=== PATIENT | female | born 1975 | race Caucasian/White ===

== ENCOUNTER 2019-10-03 17:49 | Emergency (ER) | payer OTHER ==
[~2019-10-03] VITALS: Ht 172.7 cm; Wt 118.2 kg
[~2019-10-03 17:49] MED LIST: ALEVE 220MG220 MG PO; ALLEGRA 180MG180 MG PO; ALLEGRA60 M1 PO; ASPIRIN 32325 MG/TAB PO; CELEBREX 200MG200 MG PO; CENTRUM SILVER1 CTB PO; DILAUDID 2MG TAB2 MG PO; EC NAPROSYN500 MG PO; FLEXERIL 1010 MG/TAB PO; IMITREX100 MG PO; IMITREX25 MG PO; LIDODERM PATCH TP; NEXIUM 40MG40 MG PO; NEXIUM40 MG PO; NORCO 325 MG-51 TAB PO; PERCOCET 325 MG1 TA2 PO; PROVENTIL0.09 MG/A1 IH; ROBAXIN 50500 MG/TAB PO; SINGULAIR10 MG PO; TYLENOL 325MG325 MG PO; ULTRAM 50MG TAB50 MG PO; VALIUM 5MG T5 MG/TAB PO; VENTOLIN0.09 MG IH
[2019-10-03] MEDS ORDERED: NORCO 325 MG-51 TAB PO (20:06)
[2019-10-03] MEDS ORDERED: PREDNISONE20 MG PO (20:06)
[2019-10-03] MEDS ORDERED: VALIUM 5MG T5 MG/TAB PO (20:06)
[2019-10-03 20:35] VITALS: BP 126/73; PULSE 74; TEMP 98.1
== END 2019-10-03 20:36 | disposition home or self-care (01) ==
LOC: COL.ER 17:49
DX: M54.16 Radiculopathy, lumbar region (principal); K21.9 Gastro-esophageal reflux disease without esophagitis; J45.909 Unspecified asthma, uncomplicated; F41.9 Anxiety disorder, unspecified; Z79.82 Long term (current) use of aspirin
CPT/HCPCS: J1170; J2405; J2930; J3360

== ENCOUNTER → 2019-10-26 | Outpatient (CLI) | payer OTHER ==
[~2019-10-26] MED LIST changes: +PREDNISONE20 MG PO
== END ==
LOC: COL.RAD 11:48
DX: M54.5 Low back pain (principal)

== ENCOUNTER → 2019-11-30 | Outpatient (CLI) | payer OTHER | LOC: COL.RAD 07:02 | DX: M51.9 Unspecified thoracic, thoracolumbar and lumbosacral intervertebral disc disorder (principal) | CPT/HCPCS: A9585 ==

== ENCOUNTER → 2020-05-06 | Outpatient (CLI) | payer OTHER | LOC: COL.RAD 12:11 | DX: M22.42 Chondromalacia patellae, left knee (principal); W19.XXXA Unspecified fall, initial encounter; M25.462 Effusion, left knee ==

== ENCOUNTER → 2022-12-29 | Outpatient (CLI) | payer OTHER ==
[~2022-12-29] MED LIST changes: +TESSALON PERLE200 MG PO
== END ==
LOC: MC.RAD 14:13
DX: Z12.31 Encounter for screening mammogram for malignant neoplasm of breast (principal)

== ENCOUNTER → 2024-07-03 | Outpatient (CLI) | payer OTHER ==
[~2024-07-03] MED LIST changes: +AMITRIPTYLINE H25 M1 PO; +BENADRYL50 MG PO
== END ==
LOC: MC.RAD 13:44
DX: Z12.31 Encounter for screening mammogram for malignant neoplasm of breast (principal)